=== PATIENT | female | born 1985 | race Native Hawaiian/Other Pacific Islander ===

== ENCOUNTER 2023-08-14 16:55 | Observation (INO) | payer BC ==
[~2023-08-14] VITALS: Ht 157.5 cm; Wt 58.1 kg
[~2023-08-14 16:55] MED LIST: PROZAC10 MG PO; TRI-PREVIFEM PO
[2023-08-14 18:29] VITALS: BP 110/69; TEMP 98.6; Ht 157.5 cm; Wt 58.1 kg
[2023-08-14] MEDS ORDERED: NP THYROID60 MG PO (19:10)
[2023-08-15] VITALS: BP 98/54; TEMP 98.4
[2023-08-15 04:00] VITALS: BP 91/46; TEMP 98.1
[2023-08-15 08:00] VITALS: BP 112/78; TEMP 98.3
[2023-08-15 12:00] VITALS: BP 104/51; TEMP 98.6
[2023-08-15 12:42] LABS: PLATELET COUNT 196 K/uL (152-353)
[2023-08-15 12:43] LABS: POTASSIUM 3.8 mmol/L (3.6-5.2)
== END 2023-08-15 15:13 | disposition home or self-care (01) ==
LOC: MED/SURG 16:55
PROVIDERS: ADMIT Family Medicine; ATTEND Family Medicine
DX: E86.0 Dehydration (principal); B34.9 Viral infection, unspecified; K12.1 Other forms of stomatitis; R11.0 Nausea; K21.9 Gastro-esophageal reflux disease without esophagitis; R19.7 Diarrhea, unspecified; E46 Unspecified protein-calorie malnutrition; F41.9 Anxiety disorder, unspecified; Z63.0 Problems in relationship with spouse or partner; E03.8 Other specified hypothyroidism; R53.1 Weakness; R42 Dizziness and giddiness; I95.89 Other hypotension; Z68.23 Body mass index [BMI] 23.0-23.9, adult
CPT/HCPCS: 80053; 84443; 85027; 96361; 96375; 99221; G0378; G0379; J3490